=== PATIENT | male | born 1960 | race Caucasian/White ===

== ENCOUNTER → 2017-11-25 | Day surgery (SDC) | payer OTHER ==
--- NOTE | 2017-11-22 15:31 | History & Physical Pre-Op ---
General Information and HPI History of Present Illness: Yohan is a 57-year-old diabetic male with a history of a nonhealing ulcer to the plantar aspect of his right foot. The patient has undergone an extended course of conservative care, including shoe gear and activity modification, rest, immobilization and strict offloading. An additional course of intensive local wound care has failed to heal his ulceration. The patient presents today for preoperative surgical consultation. The patient was referred to our office from Carlos Tucker DPM. Allergies/Medications Allergies: Coded Allergies: No Known Allergies (11/21/17) Past History Medical History Cardiovascular: CHF, hypertension, hyperlipidemia Endocrine: diabetes Surgical History Pertinent Surgical History: none (Foot surgery) Review of Systems Review of Systems: Unremarkable except for that noted in history of present illness Exam & Diagnostic Data Physical Exam: Lungs clear bilaterally. Heart sounds rate and rhythm regular. Lower extremity physical exam demonstrates intact pedal pulses bilaterally. Both dorsalis pedis and posterior tibial arteries are palpable bilaterally. Patient without any sensory motor deficits. Deep tendon reflexes grossly intact. Patient noted to have a Brody grade 2 ulceration at the plantar aspect of the right foot the level of the fourth metatarsal head. There is a mix fibrotic and granular wound bed. No probing or undermining identified. Assessment/Plan Assessment/Plan: Nonhealing ulcer plantar right foot. A lengthy discussion reviewing both surgical and conservative options was held the patient at bedside and the patient elected to go forward with surgery despite the risks. As Ranked By This Provider Problem List: 1. Other acute osteomyelitis, right ankle and foot Attending MD Review Statement Attending Statement Attending MD Statement: examined this patient
[~2017-11-25] VITALS: Ht 180.3 cm; Wt 111.1 kg
[~2017-11-25] MED LIST: AMLODIPINE BESY10 M1 PO; ASPIRIN EC81 M1 PO; CARVEDILOL25 M1 PO; CINNAMON500 M1 PO; FENOFIBRATE54 M1 PO; FISH OIL 1,2001 EACH PO; FUROSEMIDE40 M1 PO; GLIPIZIDE10 M2 PO; LIPITOR10 M1 PO; LISINOPRIL40 M1 PO; MULTIVITAMINS1 EAC9 PO
--- NOTE | 2017-11-25 09:43 | Operative Report ---
Operative/Inv Procedure Report Surgery Date: 11/25/17 Name of Procedure: 1 partial fourth ray resection right foot 2 intraoperative administration of ankle block anesthesia Pre-Operative Diagnosis: 1 suspected osteomyelitis right foot 2 nonhealing ulcer right foot 3 diabetic peripheral neuropathy Post-Operative Diagnosis: The same Estimated Blood Loss: scant Surgeon/Line Pilot: Jared GUZMAN,Matt Tucker DPM Anesthesia: moderate sedation, block Operative/Procedure Note Note: After obtaining informed consent the patient was brought to the operating room and placed on the operating table in the supine position. The patient was then securely fastened to the operating table utilizing safety belt. After administration of IV sedation, 10 mL of 0.5% Marcaine plain was infiltrated about the patient's right ankle. Well-padded ankle tourniquet was placed about the patient's right lower extremity. The right foot was then scrubbed, prepped and draped in usual aseptic manner. Right lower extremity was elevated to examine to limb, which point the ankle tourniquet inflated 250 mmHg. Attention directed dorsal aspect the right foot, where a 4 cm incision was made over the distal fourth right. The dissection was then carried down subtenons tissues. Dissection was then deepened to the periosteum overlying the distal fourth metatarsal. The periosteum incised reflected. A sagittal bone saw was utilized to remove the distal 3 cm of fourth metatarsal. Specimen was sent for microbiologic inspection. It was then irrigated with normal sterile saline. The deep tissues reports a 4-0 Vicryl and skin edges reapproximated 3-0 nylon. Incision was dressed with Xeroform, 4 x 4's, Kerlix and an Jason wrap. The patient was noted to tolerate both procedure and anesthesia well and the patient was transported from the operating room to recovery with vital signs stable. Please cc a copy of this dictation to Dr. Carlos Tucker.
== END ==
LOC: STS 02:15
DX: E11.621 Type 2 diabetes mellitus with foot ulcer (principal); L97.416 Non-pressure chronic ulcer of right heel and midfoot with bone involvement without evidence of necrosis; I11.0 Hypertensive heart disease with heart failure; I50.9 Heart failure, unspecified; Z79.4 Long term (current) use of insulin
CPT/HCPCS: 87070; 87075; 87147; J0690; J1815; J2001; J2250; J3490